=== PATIENT | male | born 1995 | race Caucasian/White ===

== ENCOUNTER 2017-10-16 20:02 | Observation (INO) | payer BC ==
[2017-10-16] MEDS ORDERED: Sodium Chloride 0.9% 1,000 ML IV ONE (20:06)
--- NOTE | 2017-10-16 20:09 | EDM.PDOC ---
ED HPI GENERAL MEDICAL PROBLEM - General Chief Complaint: Abdominal Pain Stated Complaint: PT HAS STOMACH PAINS Time Seen by Provider: 10/16/17 20:05 - History of Present Illness INITIAL COMMENTS - FREE TEXT/NARRATIVE: HISTORY AND PHYSICAL: History of present illness: Patient 22-year-old white male presents concern of left-sided abdominal pain for increase over last 24 hours patient equivocates as to the onset no fever chills nausea vomiting he denies trauma or other concern. Review of systems: As per history of present illness and below otherwise all systems reviewed and negative. Past medical history: As per history of present illness and as reviewed below otherwise noncontributory. Surgical history: As per history of present illness and as reviewed below otherwise noncontributory. Social history: No reported history of drug or alcohol abuse. Family history: As per history of present illness and as reviewed below otherwise noncontributory. Physical exam: HEENT: Atraumatic, normocephalic, pupils reactive, negative for conjunctival pallor or scleral icterus, mucous membranes moist, throat clear, neck supple, nontender, trachea midline. Lungs: Clear to auscultation, breath sounds equal bilaterally, chest nontender. Heart: S1S2, regular, negative for clicks, rubs, or JVD. Abdomen: Soft, nondistended, nontender. Negative for masses or hepatosplenomegaly. Negative for costovertebral tenderness. Pelvis: Stable nontender. Genitourinary: Deferred. Rectal: Deferred. Extremities: Atraumatic, negative for cords or calf pain. Neurovascular unremarkable. Neuro: Awake, alert, oriented. Cranial nerves II through XII unremarkable. Cerebellum unremarkable. Motor and sensory unremarkable throughout. Exam nonfocal. Diagnostics: CBC CMP UA EtOH urine drug screen CT abdomen and pelvis Therapeutics: Saline 1 L bolus Impression: #1 left-sided abdominal pain Definitive disposition and diagnosis as appropriate pending reevaluation and review of above. abdomen Pain Score (Numeric/FACES): 7 - Related Data Allergies Allergy/AdvReac Type Severity Reaction Status Date / Time No Known Allergies Allergy Verified 10/16/17 20:16 Home Meds: Home Meds . [No Known Home Meds] 10/16/17 [History] Past Medical History HEENT History: Reports: None Cardiovascular History: Reports: None Respiratory History: Reports: None Gastrointestinal History: Reports: None Genitourinary History: Reports: None Musculoskeletal History: Reports: None Neurological History: Reports: None Psychiatric History: Reports: ADHD Endocrine/Metabolic History: Reports: None Hematologic History: Reports: None Immunologic History: Reports: None Oncologic (Cancer) History: Reports: None Dermatologic History: Reports: None - Past Surgical History Head Surgeries/Procedures: Reports: None Cardiovascular Surgical History: Reports: None Social & Family History - Tobacco Use Smoking Status *Q: Current Every Day Smoker Years of Tobacco use: 6 Packs/Tins Daily: 1 - Recreational Drug Use Recreational Drug Use: Yes Drug Use in Last 12 Months: No ED ROS GENERAL - Review of Systems Review Of Systems: ROS reveals no pertinent complaints other than HPI. ED EXAM, GENERAL - Physical Exam Exam: See Below (See dictation) Course - Vital Signs Last Recorded V/S: Last Vital Signs Temp 36.6 C 10/16/17 20:02 Pulse 97 10/16/17 20:02 Resp 18 10/16/17 20:02 BP 128/69 10/16/17 20:02 Pulse Ox 99 10/16/17 20:02 - Orders/Labs/Meds Orders: Active Orders 24 hr Category Date Time Status EKG 12 Lead [EKG Documentation Completion] [RC] STAT Care 10/16/17 23:45 Active Abdomen Pelvis w Cont [CT] Stat Exams 10/16/17 20:06 Taken Labs: Laboratory Tests 10/16/17 10/16/17 10/16/17 Range/Units 20:21 20:21 20:25 WBC 9.32 (4.0-11.0) K/uL RBC 3.99 L (4.50-5.90) M/uL Hgb 12.7 L (13.0-17.0) g/dL Hct 36.2 L (38.0-50.0) % MCV 90.7 (80.0-98.0) fL MCH 31.8 (27.0-32.0) pg MCHC 35.1 (31.0-37.0) g/dL RDW Std Deviation 50.3 (28.0-62.0) fl RDW Coeff of Hannah 15 (11.0-15.0) % Plt Count 219 (150-400) K/uL MPV 8.60 (7.40-12.00) fL Add Manual Diff YES Neutrophils % (Manual) 29 L (48.0-80.0) % Band Neutrophils % 4 % Lymphocytes % (Manual) 56 H (16.0-40.0) % Monocytes % (Manual) 9 (0.0-15.0) % Eosinophils % (Manual) 1 (0.0-7.0) % Basophils % (Manual) 1 (0.0-1.5) % Nucleated RBC % 0.0 /100WBC Absolute Seg Neuts 2.7 (1.4-5.7) Band Neutrophils # 0.4 Lymphocytes # (Manual) 5.2 H (0.6-2.4) Monocytes # (Manual) 0.8 (0.0-0.8) Eosinophils # (Manual) 0.1 (0.0-0.7) Basophils # (Manual) 0.1 (0.0-0.1) Nucleated RBCs # 0 K/uL Sodium 140 (136-146) mmol/L Potassium 4.1 (3.5-5.1) mmol/L Chloride 110 (98-110) mmol/L Carbon Dioxide 21 (21-31) mmol/L BUN 12 (6.0-23.0) mg/dL Creatinine 0.8 (0.6-1.5) mg/dL Est Cr Clr Drug Dosing 126.88 mL/min Estimated GFR (MDRD) > 60.0 ml/min Glucose 110 (60-110) mg/dL Calcium 8.7 L (8.8-10.8) mg/dL Total Bilirubin 1.1 (0.1-1.5) mg/dL AST 81 H (5-40) IU/L ALT 158 H (8-54) IU/L Alkaline Phosphatase 94 (40-150) Total Protein 7.3 (6.0-8.0) g/dL Albumin 3.6 (3.5-5.0) g/dL Globulin 3.7 H (2.0-3.5) g/dL Albumin/Globulin Ratio 1.0 L (1.3-2.8) Lipase 73 (7-80) U/L Urine Color YELLOW Urine Appearance CLEAR Urine pH 7.0 (5.0-8.0) Ur Specific [place] 1.020 (1.001-1.035) Urine Protein NEGATIVE (NEGATIVE) mg/dL Urine Glucose (UA) NEGATIVE (NEGATIVE) mg/dL Urine Ketones NEGATIVE (NEGATIVE) mg/dL Urine Occult Blood NEGATIVE (NEGATIVE) Urine Nitrite NEGATIVE (NEGATIVE) Urine Bilirubin NEGATIVE (NEGATIVE) Urine Urobilinogen 1.0 (<2.0) EU/dL Ur Leukocyte Esterase NEGATIVE (NEGATIVE) Urine RBC 0-2 (0-2/HPF) Urine WBC 0-2 (0-5/HPF) Ur Epithelial Cells RARE (NONE-FEW) Urine Bacteria FEW (NEGATIVE) Urine Opiates Screen (NEGATIVE) Ur Oxycodone Screen (NEGATIVE) Urine Methadone Screen (NEGATIVE) Ur Barbiturates Screen (NEGATIVE) Ur Phencyclidine Scrn (NEGATIVE) Ur Amphetamine Screen (NEGATIVE) U Methamphetamines Scrn (NEGATIVE) U Benzodiazepines Scrn (NEGATIVE) U Cocaine Metab Screen (NEGATIVE) U Marijuana (THC) Screen (NEGATIVE) Ethyl Alcohol < 10.0 mg/dL 10/16/17 Range/Units 20:25 WBC (4.0-11.0) K/uL RBC (4.50-5.90) M/uL Hgb (13.0-17.0) g/dL Hct (38.0-50.0) % MCV (80.0-98.0) fL MCH (27.0-32.0) pg MCHC (31.0-37.0) g/dL RDW Std Deviation (28.0-62.0) fl RDW Coeff of Hannah (11.0-15.0) % Plt Count (150-400) K/uL MPV (7.40-12.00) fL Add Manual Diff Neutrophils % (Manual) (48.0-80.0) % Band Neutrophils % % Lymphocytes % (Manual) (16.0-40.0) % Monocytes % (Manual) (0.0-15.0) % Eosinophils % (Manual) (0.0-7.0) % Basophils % (Manual) (0.0-1.5) % Nucleated RBC % /100WBC Absolute Seg Neuts (1.4-5.7) Band Neutrophils # Lymphocytes # (Manual) (0.6-2.4) Monocytes # (Manual) (0.0-0.8) Eosinophils # (Manual) (0.0-0.7) Basophils # (Manual) (0.0-0.1) Nucleated RBCs # K/uL Sodium (136-146) mmol/L Potassium (3.5-5.1) mmol/L Chloride (98-110) mmol/L Carbon Dioxide (21-31) mmol/L BUN (6.0-23.0) mg/dL Creatinine (0.6-1.5) mg/dL Est Cr Clr Drug Dosing mL/min Estimated GFR (MDRD) ml/min Glucose (60-110) mg/dL Calcium (8.8-10.8) mg/dL Total Bilirubin (0.1-1.5) mg/dL AST (5-40) IU/L ALT (8-54) IU/L Alkaline Phosphatase (40-150) Total Protein (6.0-8.0) g/dL Albumin (3.5-5.0) g/dL Globulin (2.0-3.5) g/dL Albumin/Globulin Ratio (1.3-2.8) Lipase (7-80) U/L Urine Color Urine Appearance Urine pH (5.0-8.0) Ur Specific [place] (1.001-1.035) Urine Protein (NEGATIVE) mg/dL Urine Glucose (UA) (NEGATIVE) mg/dL Urine Ketones (NEGATIVE) mg/dL Urine Occult Blood (NEGATIVE) Urine Nitrite (NEGATIVE) Urine Bilirubin (NEGATIVE) Urine Urobilinogen (<2.0) EU/dL Ur Leukocyte Esterase (NEGATIVE) Urine RBC (0-2/HPF) Urine WBC (0-5/HPF) Ur Epithelial Cells (NONE-FEW) Urine Bacteria (NEGATIVE) Urine Opiates Screen NEGATIVE (NEGATIVE) Ur Oxycodone Screen NEGATIVE (NEGATIVE) Urine Methadone Screen NEGATIVE (NEGATIVE) Ur Barbiturates Screen NEGATIVE (NEGATIVE) Ur Phencyclidine Scrn NEGATIVE (NEGATIVE) Ur Amphetamine Screen NEGATIVE (NEGATIVE) U Methamphetamines Scrn NEGATIVE (NEGATIVE) U Benzodiazepines Scrn NEGATIVE (NEGATIVE) U Cocaine Metab Screen NEGATIVE (NEGATIVE) U Marijuana (THC) Screen POSITIVE (NEGATIVE) Ethyl Alcohol mg/dL Meds: Medications Discontinued Medications Generic Name Dose Route Start Last Admin Trade Name Freq PRN Reason Stop Dose Admin Sodium Chloride 1,000 mls @ 999 mls/hr 10/16/17 20:06 10/16/17 20:43 Normal Saline IV 10/16/17 21:06 999 mls/hr STAT ONE Administration Iopamidol 100 ml 10/16/17 22:37 10/16/17 22:38 Isovue Multipack-370 (76%) IVPUSH 10/16/17 22:38 100 ml ONETIME STA Administration Departure - Departure Time of Disposition: 23:46 Disposition: Refer to Observation Condition: Good Clinical Impression: Abdominal pain, Splenic infarction - Discharge Information Forms: ED Department Discharge - My Orders Last 24 Hours: My Active Orders 10/16/17 20:06 Abdomen Pelvis w Cont [CT] Stat 10/16/17 23:45 EKG 12 Lead [EKG Documentation Completion] [RC] STAT - Assessment/Plan Last 24 Hours: My Active Orders 10/16/17 20:06 Abdomen Pelvis w Cont [CT] Stat 10/16/17 23:45 EKG 12 Lead [EKG Documentation Completion] [RC] STAT
[2017-10-16 20:52] LABS: CHLORIDE,CL 110 mmol/L (98-110); SODIUM,NA 140 mmol/L (136-146)
[2017-10-16] MEDS ORDERED: Iopamidol 755 MG/ML 500 ML Multipack Bottle IVPUSH STA (22:37)
[2017-10-17] MEDS ORDERED: Morphine 2 MG/ML Syringe IVPUSH PRN (00:34)
[2017-10-17] MEDS: Nicotine 21 MG/24 Hr Patch TRDERM SCH ×3 (01:07→18:12)
[2017-10-17 06:12] LABS: CHLORIDE,CL 111 mmol/L (98-110); SODIUM,NA 141 mmol/L (136-146)
[2017-10-17] MEDS: Sodium Chloride 0.45% 1,000 ML IV SCH ×2 (09:50→19:58)
[2017-10-17] MEDS ORDERED: Acetaminophen/oxyCODONE 325-5 MG Tab PO PRN (11:35)
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
--- NOTE | 2017-10-17 14:07 | CT ---
EXAM DATE: 10/16/17 PATIENT'S AGE: 22 Patient: LIANA SYED Facility: [place], [place] Site . Site : 1995 Study: CT Abdomen/Pelvis [id number]/23/2017 10:33:30 PM Ordering Physician: Mayito Hearn Final Report: INDICATION: Left upper quadrant pain for 1 week, no history of trauma TECHNIQUE: CT abdomen and pelvis acquired with 100 cc Isovue 370 IV contrast. COMPARISON: November 21, 2015 FINDINGS: Lower chest: Unremarkable. Liver: Unremarkable. Spleen: There is a well demarcated, wedge-shaped, peripheral hypodensity within the spleen measuring approximately 3.5 x 2.6 x 3.2 cm. The spleen measures 14.5 cm in length. Pancreas: Unremarkable. Gallbladder and bile ducts: Unremarkable. Adrenal glands: Unremarkable. Kidneys: Unremarkable. GI tract: Unremarkable. Vascular structures: Unremarkable. Lymph nodes: Unremarkable. Miscellaneous: Unremarkable. No free air or significant free fluid. Pelvic Organs: Trace free fluid in the pelvis. Bones: Unremarkable for age. IMPRESSION: Acute/subacute segmental infarction of the spleen. The amount of infarcted tissue is less than 10 percent of the splenic parenchyma. There is also splenomegaly. Please note that all CT scans at this facility use dose modulation, iterative reconstruction, and/or weight-based dosing when appropriate to reduce radiation dose to as low as reasonably achievable. Dictated by Mojgan Richardson MD @ Oct 16 2017 11:27PM (Electronic Signature) Report Signed by Proxy. BORA
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
[2017-10-18] MEDS: Sodium Chloride 0.45% 1,000 ML IV SCH (05:16)
[2017-10-18 09:26] VITALS: BP 107/57
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
== END 2017-10-18 12:25 | disposition home or self-care (01) ==
LOC: MW.ED 20:02 → MW.MS 23:47
PROVIDERS: ADMIT Internal Medicine; ATTEND Internal Medicine
DX: D73.5 Infarction of spleen (principal); F17.220 Nicotine dependence, chewing tobacco, uncomplicated; F12.90 Cannabis use, unspecified, uncomplicated; F90.9 Attention-deficit hyperactivity disorder, unspecified type
CPT/HCPCS: 36415; 74177; 80053; 80305; 81001; 81241; 83690; 85025; 85027; 85300; 85302; 85303; 85610; 85613; 85670; 85730; 86146; 86147; 96360; 99285; A9270; G0480; J7030; J7040; Q9967; 85598; 96361; 99283; G0378

== ENCOUNTER 2018-01-23 03:45 | Emergency (ER) | payer OTHER, BC ==
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
[2018-01-23 05:26] VITALS: BP 120/58
--- NOTE | 2018-01-23 15:13 | CR ---
EXAM DATE: 01/23/18 PATIENT'S AGE: 22 Patient: LIANA SYED Facility: [place], [place] Site . Site : 1995 Study: XRay Extremity Right [id number]/2/2018 4:17:28 AM Ordering Physician: Doctor Ambrosio Final Report: Indication: Injury Technique: Three views of the right hand Comparison: None available Findings: Bones: An apparent tiny cortical protuberance off of the proximal aspect of the 3rd proximal phalanx on the oblique view is nonspecific and appears nonacute. Otherwise no displaced fracture or dislocation. Joint spaces: Unremarkable. Soft tissues: Unremarkable. Impression: No displaced fracture or dislocation. An apparent tiny cortical protuberance off of the base of the 3rd proximal phalanx appears nonacute. Correlate for focal tenderness. Dictated by Dominick Henriquez MD @ 01/23/2018 4:23:43 AM Dictated by: Dominick Henriquez MD @ 01/23/2018 04:23:51 (Electronic Signature) Report Signed by Proxy. BORA
== END 2018-01-23 05:26 | disposition home or self-care (01) ==
LOC: MW.ED 03:45
DX: S60.221A Contusion of right hand, initial encounter (principal); F17.210 Nicotine dependence, cigarettes, uncomplicated; W23.0XXA Caught, crushed, jammed, or pinched between moving objects, initial encounter; Y92.89 Other specified places as the place of occurrence of the external cause; Y99.0 Civilian activity done for income or pay
CPT/HCPCS: 29125; 73130-26-RT; 73130-RT; 99283

== ENCOUNTER 2018-02-08 17:28 | Emergency (ER) | payer OTHER, BC ==
[2018-02-08] MEDS ORDERED: Lidocaine 1% 10 ML MDV INJECT ONE (17:39)
--- NOTE | 2018-02-08 17:44 | EDM.PDOC ---
ED HPI GENERAL MEDICAL PROBLEM - General Chief Complaint: Head Injury Stated Complaint: HEAD INJURY LT SIDE Time Seen by Provider: 02/08/18 17:32 - History of Present Illness INITIAL COMMENTS - FREE TEXT/NARRATIVE: HISTORY AND PHYSICAL: History of present illness: Patient's 22-year-old male presents with concern of head injury with scalp laceration this occurred when he was hit by a falling pipe he denies loss of consciousness he is some localized pain and recent laceration which is in his left occipital scalp with no nausea no vomiting no numbness weakness visual disturbance or other neurological signs or symptoms Review of systems: As per history of present illness and below otherwise all systems reviewed and negative. Past medical history: As per history of present illness and as reviewed below otherwise noncontributory. Surgical history: As per history of present illness and as reviewed below otherwise noncontributory. Social history: No reported history of drug or alcohol abuse. Family history: As per history of present illness and as reviewed below otherwise noncontributory. Physical exam: HEENT: Patient has approximately a 4 cm moderate depth laceration is left occipital scalp there is no step-off no depression hemostasis, normocephalic, pupils reactive, negative for conjunctival pallor or scleral icterus, mucous membranes moist, throat clear, neck supple, nontender, trachea midline. Lungs: Clear to auscultation, breath sounds equal bilaterally, chest nontender. Heart: S1S2, regular, negative for clicks, rubs, or JVD. Abdomen: Soft, nondistended, nontender. Negative for masses or hepatosplenomegaly. Negative for costovertebral tenderness. Pelvis: Stable nontender. Genitourinary: Deferred. Rectal: Deferred. Extremities: Atraumatic, negative for cords or calf pain. Neurovascular unremarkable. Neuro: Awake, alert, oriented. Cranial nerves II through XII unremarkable. Cerebellum unremarkable. Motor and sensory unremarkable throughout. Exam nonfocal. Diagnostics: None Therapeutics: Wound was irrigated with cold past month 0.9 normal saline and anesthetized 1% lidocaine without epinephrine and closed with stainless steel bear bacitracin was applied Impression: #1 head injury with scalp laceration Definitive disposition and diagnosis as appropriate pending reevaluation and review of above. - Related Data Allergies Allergy/AdvReac Type Severity Reaction Status Date / Time No Known Allergies Allergy Verified 01/23/18 04:00 Home Meds: Home Meds . [No Known Home Meds] 10/16/17 [History] Past Medical History - Past Health History Medical/Surgical History: Denies Medical/Surgical History HEENT History: Reports: None Cardiovascular History: Reports: None Respiratory History: Reports: None Gastrointestinal History: Reports: None Genitourinary History: Reports: None Musculoskeletal History: Reports: None Neurological History: Reports: None Psychiatric History: Reports: ADHD Endocrine/Metabolic History: Reports: None Hematologic History: Reports: None Immunologic History: Reports: None Oncologic (Cancer) History: Reports: None Dermatologic History: Reports: None - Infectious Disease History Infectious Disease History: Reports: None - Past Surgical History Head Surgeries/Procedures: Reports: None Cardiovascular Surgical History: Reports: None Social & Family History - Family History Family Medical History: Noncontributory - Tobacco Use Smoking Status *Q: Current Every Day Smoker Years of Tobacco use: 12 Packs/Tins Daily: 2 Used Tobacco, but Quit: No Second Hand Smoke Exposure: Yes - Caffeine Use Caffeine Use: Reports: Coffee, Energy Drinks, Soda - Alcohol Use Days Per Week of Alcohol Use: 2 Number of Drinks Per Day: 1 Total Drinks Per Week: 2 - Recreational Drug Use Recreational Drug Use: Yes Drug Use in Last 12 Months: Yes Recreational Drug Type: Reports: Marijuana/Hashish Other Recreational Drug Type: Medical Marijuana Recreational Drug Use Frequency: Daily ED ROS GENERAL - Review of Systems Review Of Systems: ROS reveals no pertinent complaints other than HPI. ED EXAM, HEAD INJURY - Physical Exam Exam: See Below (See dictation) Course - Orders/Labs/Meds Orders: Active Orders 24 hr Category Date Time Status Lidocaine 1% [Xylocaine 1%] Med 02/08/18 17:39 Once 10 ml INJECT ONETIME ONE Medication Orders Lidocaine HCl (Xylocaine 1%) 10 ml INJECT ONETIME ONE Stop: 02/08/18 17:40 Meds: Medications Generic Name Dose Route Start Last Admin Trade Name Freq PRN Reason Stop Dose Admin Lidocaine HCl 10 ml 02/08/18 17:39 Xylocaine 1% INJECT 02/08/18 17:40 ONETIME ONE Departure - Departure Time of Disposition: 17:43 Disposition: Home, Self-Care 01 Condition: Good Clinical Impression: Head injury, Scalp laceration - Discharge Information Referrals: PCP,None [Primary Care Provider] - Additional Instructions: The following information is given to patients seen in the emergency department who are being discharged to home. This information is to outline your options for follow-up care. We provide all patients seen in our emergency department with a follow-up referral. The need for follow-up, as well as the timing and circumstances, are variable depending upon the specifics of your emergency department visit. If you don't have a primary care physician on staff, we will provide you with a referral. We always advise you to contact your personal physician following an emergency department visit to inform them of the circumstance of the visit and for follow-up with them and/or the need for any referrals to a consulting specialist. The emergency department will also refer you to a specialist when appropriate. This referral assures that you have the opportunity for followup care with a specialist. All of these measure are taken in an effort to provide you with optimal care, which includes your followup. Under all circumstances we always encourage you to contact your private physician who remains a resource for coordinating your care. When calling for followup care, please make the office aware that this follow-up is from your recent emergency room visit. If for any reason you are refused follow-up, please contact the [facility] emergency department at and asked to speak to the emergency department charge nurse. Follow-up primary medical doctor/occupational health as discussed wound check 48 hours staple removal 10-14 days return as needed as discussed - My Orders Last 24 Hours: My Active Orders 02/08/18 17:39 Lidocaine 1% [Xylocaine 1%] 10 ml INJECT ONETIME ONE - Assessment/Plan Last 24 Hours: My Active Orders 02/08/18 17:39 Lidocaine 1% [Xylocaine 1%] 10 ml INJECT ONETIME ONE
[2018-02-08 17:49] VITALS: BP 130/90
[2018-02-08] MEDS: Lidocaine 1% 20 ML MDV ONE ×2 (18:10→18:22)
[2018-02-08] MEDS ORDERED: Bacitracin Oint 1 GM U/D Packet TOP ONE (18:16)
== END 2018-02-08 18:40 | disposition home or self-care (01) ==
LOC: MW.ED 17:28
DX: S01.01XA Laceration without foreign body of scalp, initial encounter (principal); S09.90XA Unspecified injury of head, initial encounter; F17.210 Nicotine dependence, cigarettes, uncomplicated; W20.8XXA Other cause of strike by thrown, projected or falling object, initial encounter
CPT/HCPCS: 12002; 99282; 99283

== ENCOUNTER 2018-02-27 09:59 | Emergency (ER) | payer OTHER, BC ==
[2018-02-27 10:15] VITALS: BP 133/69
== END 2018-02-27 10:17 | disposition home or self-care (01) ==
LOC: MW.ED 09:59
DX: Z53.21 Procedure and treatment not carried out due to patient leaving prior to being seen by health care provider (principal)

== ENCOUNTER 2019-01-03 12:24 | Emergency (ER) | payer OTHER, BC ==
[2019-01-03 12:39] VITALS: BP 114/70
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
== END 2019-01-03 13:11 | disposition home or self-care (01) ==
LOC: MW.ED 12:24
DX: M54.5 Low back pain (principal); F17.210 Nicotine dependence, cigarettes, uncomplicated
CPT/HCPCS: 99283

== ENCOUNTER 2019-04-07 21:51 | Emergency (ER) | payer OTHER ==
[2019-04-07] MEDS ORDERED: Tetracaine HCl/PF 0.5% 4 ML Bottle EYERT ONE (21:54)
[2019-04-07 22:03] VITALS: BP 120/75
--- NOTE | 2019-04-07 22:08 | EDM.PDOC ---
ED HPI GENERAL MEDICAL PROBLEM - General Chief Complaint: Eye Problems Stated Complaint: ROCK IN RT EYE Time Seen by Provider: 04/07/19 22:00 - History of Present Illness INITIAL COMMENTS - FREE TEXT/NARRATIVE: HISTORY AND PHYSICAL: History of present illness: Patient 23-year-old male presents with concern of possible foreign body to his right eye he states a small rock or debris was in his right eye at work today he states he immediately went washed his eye at the eye station presents now for evaluation. Review of systems: As per history of present illness and below otherwise all systems reviewed and negative. Past medical history: As per history of present illness and as reviewed below otherwise noncontributory. Surgical history: As per history of present illness and as reviewed below otherwise noncontributory. Social history: No reported history of drug or alcohol abuse. Family history: As per history of present illness and as reviewed below otherwise noncontributory. Physical exam: HEENT: Atraumatic, normocephalic, pupils reactive, negative for conjunctival pallor or scleral icterus, mucous membranes moist, throat clear, neck supple, nontender, trachea midline. Anterior chambers clear there is no retained foreign body corneal staining was negative for evidence of corneal abrasion in the lid eversion was negative for foreign body Lungs: Clear to auscultation, breath sounds equal bilaterally, chest nontender. Heart: S1S2, regular, negative for clicks, rubs, or JVD. Abdomen: Soft, nondistended, nontender. Negative for masses or hepatosplenomegaly. Negative for costovertebral tenderness. Pelvis: Stable nontender. Genitourinary: Deferred. Rectal: Deferred. Extremities: Atraumatic, negative for cords or calf pain. Neurovascular unremarkable. Neuro: Awake, alert, oriented. Cranial nerves II through XII unremarkable. Cerebellum unremarkable. Motor and sensory unremarkable throughout. Exam nonfocal. Diagnostics: Corneal staining Therapeutics: Tetracaine ophthalmic drops irrigation Impression: #1 history of right eye foreign body #2 medical screening exam Definitive disposition and diagnosis as appropriate pending reevaluation and review of above. right eye Pain Score (Numeric/FACES): 5 - Related Data Allergies Allergy/AdvReac Type Severity Reaction Status Date / Time No Known Allergies Allergy Verified 04/07/19 22:00 Home Meds: Home Meds . [No Known Home Meds] 04/07/19 [History] Past Medical History - Past Health History Medical/Surgical History: Denies Medical/Surgical History HEENT History: Reports: None Cardiovascular History: Reports: None Respiratory History: Reports: None Gastrointestinal History: Reports: None Genitourinary History: Reports: None, Other (See Below) Other Genitourinary History: hx of spleen injury Musculoskeletal History: Reports: None Neurological History: Reports: None Psychiatric History: Reports: ADHD Endocrine/Metabolic History: Reports: None Hematologic History: Reports: None Immunologic History: Reports: None Oncologic (Cancer) History: Reports: None Dermatologic History: Reports: None - Infectious Disease History Infectious Disease History: Reports: Chicken Pox - Past Surgical History Head Surgeries/Procedures: Reports: None Cardiovascular Surgical History: Reports: None Social & Family History - Family History Family Medical History: Noncontributory - Caffeine Use Caffeine Use: Reports: Coffee, Energy Drinks, Soda ED ROS GENERAL - Review of Systems Review Of Systems: ROS reveals no pertinent complaints other than HPI. ED EXAM GENERAL W FULL EYE - Physical Exam Exam: See Below (See dictation) Course - Vital Signs Last Recorded V/S: Last Vital Signs Temp 36.6 C 04/07/19 21:57 Pulse 69 04/07/19 21:57 Resp 17 04/07/19 21:57 BP 120/75 04/07/19 21:57 Pulse Ox 98 04/07/19 21:57 - Orders/Labs/Meds Meds: Medications Discontinued Medications Generic Name Dose Route Start Last Admin Trade Name Freq PRN Reason Stop Dose Admin Tetracaine HCl 1 ml 04/07/19 21:54 04/07/19 22:03 Tetracaine 0.5% Steri-Unit Vanessa EYERT 04/07/19 21:55 1 dose ASDIRECTED ONE Administration Departure - Departure Time of Disposition: 22:07 Disposition: Home, Self-Care 01 Condition: Good Clinical Impression: Encounter for medical screening examination, History of eye trauma - Discharge Information Referrals: PCP,None [Primary Care Provider] - Additional Instructions: The following information is given to patients seen in the emergency department who are being discharged to home. This information is to outline your options for follow-up care. We provide all patients seen in our emergency department with a follow-up referral. The need for follow-up, as well as the timing and circumstances, are variable depending upon the specifics of your emergency department visit. If you don't have a primary care physician on staff, we will provide you with a referral. We always advise you to contact your personal physician following an emergency department visit to inform them of the circumstance of the visit and for follow-up with them and/or the need for any referrals to a consulting specialist. The emergency department will also refer you to a specialist when appropriate. This referral assures that you have the opportunity for followup care with a specialist. All of these measure are taken in an effort to provide you with optimal care, which includes your followup. Under all circumstances we always encourage you to contact your private physician who remains a resource for coordinating your care. When calling for followup care, please make the office aware that this follow-up is from your recent emergency room visit. If for any reason you are refused follow-up, please contact the [facility] emergency department at and asked to speak to the emergency department charge nurse. [facility] [address] [place] [id number] Follow-up employee health and ophthalmology clinic above as needed as discussed return as needed as discussed
== END 2019-04-07 22:18 | disposition home or self-care (01) ==
LOC: MW.ED 21:51
DX: Z13.9 Encounter for screening, unspecified (principal)
CPT/HCPCS: 99283

== ENCOUNTER 2019-04-08 19:25 | Emergency (ER) | payer BC, OTHER ==
[2019-04-08] MEDS ORDERED: Albuterol/Ipratropium 3.0-0.5 MG/3 ML Neb Soln NEB ONE (19:26)
--- NOTE | 2019-04-08 19:28 | EDM.PDOC ---
ED HPI GENERAL MEDICAL PROBLEM - General Chief Complaint: Respiratory Problem Stated Complaint: HARD TIME BREATHING Time Seen by Provider: 04/08/19 19:28 Source of Information: Reports: Patient - History of Present Illness INITIAL COMMENTS - FREE TEXT/NARRATIVE: HISTORY AND PHYSICAL: History of present illness: [Patient presents with smoking history one pack per day and cough for 1 week he describes some intermittent wheezing but has no current wheeze breath sounds are clear but somewhat diminished at the bases on arrival ice in no distress alert interactive able to speak in full sentences no retractions or pursed lip breathing No fever nausea vomiting chills sweats No apparent distress 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 Past medical history: As per history of present illness and as reviewed below otherwise noncontributory. Surgical history: As per history of present illness and as reviewed below otherwise noncontributory. Social history: No reported history of drug or alcohol abuse. Family history: As per history of present illness and as reviewed below otherwise noncontributory. Physical exam: HEENT: Atraumatic, normocephalic, pupils reactive, negative for conjunctival pallor or scleral icterus, mucous membranes moist, throat clear, neck supple, nontender, trachea midline. Lungs: Clear to auscultation, breath sounds equal bilaterally, chest nontender. somewhat diminished at the bases Heart: S1S2, regular, negative for clicks, rubs, or JVD. Abdomen: Soft, nondistended, nontender. Negative for masses or hepatosplenomegaly. Negative for costovertebral tenderness. Pelvis: Stable nontender. Genitourinary: Deferred. Rectal: Deferred. Extremities: Atraumatic, negative for cords or calf pain. Neurovascular unremarkable. Neuro: Awake, alert, oriented. Cranial nerves II through XII unremarkable. Cerebellum unremarkable. Motor and sensory unremarkable throughout. Exam nonfocal. Diagnostics: [Chest 1 view ] Therapeutics: [ DuoNeb Z-Mikael Prednisone HFA ] Impression: [ acute bronchitis ] Definitive disposition and diagnosis as appropriate pending reevaluation and review of above. - Related Data Allergies Allergy/AdvReac Type Severity Reaction Status Date / Time No Known Allergies Allergy Verified 04/08/19 19:41 Home Meds: Home Meds . [No Known Home Meds] 04/07/19 [History] Past Medical History - Past Health History Medical/Surgical History: Denies Medical/Surgical History HEENT History: Reports: None Cardiovascular History: Reports: None Respiratory History: Reports: None Gastrointestinal History: Reports: None Genitourinary History: Reports: None, Other (See Below) Other Genitourinary History: hx of spleen injury Musculoskeletal History: Reports: None Neurological History: Reports: None Psychiatric History: Reports: ADHD Endocrine/Metabolic History: Reports: None Hematologic History: Reports: None Immunologic History: Reports: None Oncologic (Cancer) History: Reports: None Dermatologic History: Reports: None - Infectious Disease History Infectious Disease History: Reports: Chicken Pox - Past Surgical History Head Surgeries/Procedures: Reports: None Cardiovascular Surgical History: Reports: None Social & Family History - Family History Family Medical History: Noncontributory - Caffeine Use Caffeine Use: Reports: Coffee, Energy Drinks, Soda ED ROS GENERAL - Review of Systems Review Of Systems: See Below ED EXAM, GENERAL - Physical Exam Exam: See Below Course - Vital Signs Last Recorded V/S: Last Vital Signs Temp 98.0 F 04/08/19 19:30 Pulse 73 04/08/19 19:30 Resp 22 H 04/08/19 19:30 BP 124/67 04/08/19 19:30 Pulse Ox 98 04/08/19 19:30 - Orders/Labs/Meds Orders: Active Orders 24 hr Category Date Time Status RT Aerosol Therapy [RC] ASDIRECTED Care 04/08/19 19:26 Active Chest 1V Frontal [CR] Stat Exams 04/08/19 19:28 Taken Meds: Medications Discontinued Medications Generic Name Dose Route Start Last Admin Trade Name Corina PRN Reason Stop Dose Admin Albuterol/Ipratropium 3 ml 04/08/19 19:26 04/08/19 19:32 Duoneb 3.0-0.5 Mg/3 Ml NEB 04/08/19 19:27 3 ml ONETIME ONE Administration Departure - Departure Time of Disposition: 20:06 Disposition: Home, Self-Care 01 Condition: Good Clinical Impression: Acute bronchitis - Discharge Information Referrals: PCP,None [Primary Care Provider] - Forms: ED Department Discharge Additional Instructions: Medication as prescribed Return if symptoms persist or worsen Follow-up with primary care in 2 weeks sooner as needed [facility] - Primary [address] [address] The following information is given to patients seen in the emergency department who are being discharged to home. This information is to outline your options for follow-up care. We provide all patients seen in our emergency department with a follow-up referral. The need for follow-up, as well as the timing and circumstances, are variable depending upon the specifics of your emergency department visit. If you don't have a primary care physician on staff, we will provide you with a referral. We always advise you to contact your personal physician following an emergency department visit to inform them of the circumstance of the visit and for follow-up with them and/or the need for any referrals to a consulting specialist. The emergency department will also refer you to a specialist when appropriate. This referral assures that you have the opportunity for follow-up care with a specialist. All of these measure are taken in an effort to provide you with optimal care, which includes your follow-up. Under all circumstances we always encourage you to contact your private physician who remains a resource for coordinating your care. When calling for follow-up care, please make the office aware that this follow-up is from your recent emergency room visit. If for any reason you are refused follow-up, please contact the [facility] emergency department at and asked to speak to the emergency department charge nurse. - My Orders Last 24 Hours: My Active Orders 04/08/19 19:26 RT Aerosol Therapy [RC] ASDIRECTED 04/08/19 19:28 Chest 1V Frontal [CR] Stat - Assessment/Plan Last 24 Hours: My Active Orders 04/08/19 19:26 RT Aerosol Therapy [RC] ASDIRECTED 04/08/19 19:28 Chest 1V Frontal [CR] Stat
--- NOTE | 2019-04-08 20:21 | CR ---
INDICATION: Chest pain and shortness of breath TECHNIQUE: Chest 1 views COMPARISON: October 14, 2018 FINDINGS: Cardiovascular and mediastinum: Heart size and vasculature are normal in caliber and appearance. Lungs and pleural spaces: Lungs are clear. No sign of infiltrate or mass. No sign of pleural effusion. No pneumothorax. Bones and soft tissues: No significant findings. IMPRESSION: No acute findings and no significant changes from the prior exam. Dictated by Too Anand MD @ Apr 08 2019 8:17PM Signed by Dr. Too Anand @ Apr 08 2019 8:20PM
[2019-04-08 20:28] VITALS: BP 106/53
== END 2019-04-08 20:38 | disposition home or self-care (01) ==
LOC: MW.ED 19:25
DX: J20.9 Acute bronchitis, unspecified (principal); Z87.891 Personal history of nicotine dependence
CPT/HCPCS: 71045; 71045-26; 94640; 99283-25; J7620-GY

== ENCOUNTER 2019-05-19 17:23 | Emergency (ER) | payer BC ==
--- NOTE | 2019-05-19 17:48 | EDM.PDOC ---
ED HPI GENERAL MEDICAL PROBLEM - General Chief Complaint: Skin Complaint Stated Complaint: INJURED HEAD Time Seen by Provider: 05/19/19 17:39 - History of Present Illness INITIAL COMMENTS - FREE TEXT/NARRATIVE: HISTORY AND PHYSICAL: History of present illness: Patient is a 23-year-old white male presents with a wound to his scalp concern of updating his tetanus he denies any other trauma or concern. Review of systems: As per history of present illness and below otherwise all systems reviewed and negative. Past medical history: As per history of present illness and as reviewed below otherwise noncontributory. Surgical history: As per history of present illness and as reviewed below otherwise noncontributory. Social history: No reported history of drug or alcohol abuse. Family history: As per history of present illness and as reviewed below otherwise noncontributory. Physical exam: HEENT: Patient has a superficial abrasion is frontal scalp good hemostasis no step-off no depression, normocephalic, pupils reactive, negative for conjunctival pallor or scleral icterus, mucous membranes moist, throat clear, neck supple, nontender, trachea midline. Lungs: Clear to auscultation, breath sounds equal bilaterally, chest nontender. Heart: S1S2, regular, negative for clicks, rubs, or JVD. Abdomen: Soft, nondistended, nontender. Negative for masses or hepatosplenomegaly. Negative for costovertebral tenderness. Pelvis: Stable nontender. Genitourinary: Deferred. Rectal: Deferred. Extremities: Atraumatic, negative for cords or calf pain. Neurovascular unremarkable. Neuro: Awake, alert, oriented. Cranial nerves II through XII unremarkable. Cerebellum unremarkable. Motor and sensory unremarkable throughout. Exam nonfocal. Diagnostics: None Therapeutics: Update tetanus Impression: #1 medical screening exam #2 minor abrasion Definitive disposition and diagnosis as appropriate pending reevaluation and review of above. - Related Data Allergies Allergy/AdvReac Type Severity Reaction Status Date / Time No Known Allergies Allergy Verified 05/19/19 17:38 Home Meds: Home Meds . [No Known Home Meds] 04/07/19 [History] Past Medical History - Past Health History Medical/Surgical History: Denies Medical/Surgical History HEENT History: Reports: None Cardiovascular History: Reports: None Respiratory History: Reports: None Gastrointestinal History: Reports: None Genitourinary History: Reports: None, Other (See Below) Other Genitourinary History: hx of spleen injury Musculoskeletal History: Reports: None Neurological History: Reports: None Psychiatric History: Reports: ADHD Endocrine/Metabolic History: Reports: None Hematologic History: Reports: None Immunologic History: Reports: None Oncologic (Cancer) History: Reports: None Dermatologic History: Reports: None - Infectious Disease History Infectious Disease History: Reports: Chicken Pox - Past Surgical History Head Surgeries/Procedures: Reports: None Cardiovascular Surgical History: Reports: None Social & Family History - Family History Family Medical History: Noncontributory - Caffeine Use Caffeine Use: Reports: Coffee, Energy Drinks, Soda ED ROS GENERAL - Review of Systems Review Of Systems: ROS reveals no pertinent complaints other than HPI. ED EXAM, SKIN/RASH Exam: See Below (Dictation) Departure - Departure Time of Disposition: 17:48 Disposition: Home, Self-Care 01 Condition: Good Clinical Impression: Abrasion, Encounter for medical screening examination - Discharge Information Referrals: PCP,None [Primary Care Provider] - Additional Instructions: The following information is given to patients seen in the emergency department who are being discharged to home. This information is to outline your options for follow-up care. We provide all patients seen in our emergency department with a follow-up referral. The need for follow-up, as well as the timing and circumstances, are variable depending upon the specifics of your emergency department visit. If you don't have a primary care physician on staff, we will provide you with a referral. We always advise you to contact your personal physician following an emergency department visit to inform them of the circumstance of the visit and for follow-up with them and/or the need for any referrals to a consulting specialist. The emergency department will also refer you to a specialist when appropriate. This referral assures that you have the opportunity for followup care with a specialist. All of these measure are taken in an effort to provide you with optimal care, which includes your followup. Under all circumstances we always encourage you to contact your private physician who remains a resource for coordinating your care. When calling for followup care, please make the office aware that this follow-up is from your recent emergency room visit. If for any reason you are refused follow-up, please contact the [facility] emergency department at and asked to speak to the emergency department charge nurse. Follow-up primary medical doctor as needed as discussed return as needed as discussed
[2019-05-19] MEDS ORDERED: Diphtheria,Pertussis(Acell),Tetanus Vaccine 0.5 ML Syringe IM ONE (17:51)
[2019-05-19 18:57] VITALS: BP 138/75
== END 2019-05-19 18:17 | disposition home or self-care (01) ==
LOC: MW.ED 17:23
DX: S00.01XA Abrasion of scalp, initial encounter (principal); X58.XXXA Exposure to other specified factors, initial encounter
CPT/HCPCS: 90471; 90715; 99283

== ENCOUNTER 2019-06-29 20:43 | Emergency (ER) | payer SELFPAY ==
[2019-06-29] MEDS ORDERED: Benzocaine 20% Topical Spray UD MUCMEM ONE (21:01)
[2019-06-29] MEDS ORDERED: Ketorolac 60 MG/2 ML SDV IM ONE (21:01)
[2019-06-29] MEDS ORDERED: Lidocaine 2% Viscous Solution 15 ML Cup PO ONE (21:01)
--- NOTE | 2019-06-29 21:06 | EDM.PDOC ---
ED HPI GENERAL MEDICAL PROBLEM - General Chief Complaint: ENT Problem Stated Complaint: INFECTION IN TOOTH AND LT EAR Time Seen by Provider: 06/29/19 20:52 Source of Information: Reports: Patient History Limitations: Reports: No Limitations - History of Present Illness INITIAL COMMENTS - FREE TEXT/NARRATIVE: HISTORY AND PHYSICAL: History of present illness: Presents reporting dental pain. Patient states that he has several teeth that are rotted out. Now he has left lower quadrant mouth/jaw pain. He stopped by a dental office they told him he needed to be on antibiotics before he could have dental work done but they declined to see him. No fever or constitutional symptoms. Review of systems: As per history of present illness and below otherwise all systems reviewed and negative. Past medical history: As per history of present illness and as reviewed below otherwise noncontributory. Surgical history: As per history of present illness and as reviewed below otherwise noncontributory. Social history: No reported history of drug or alcohol abuse. Family history: As per history of present illness and as reviewed below otherwise noncontributory. Physical exam: HEENT: Atraumatic, normocephalic, pupils reactive, negative for conjunctival pallor or scleral icterus, mucous membranes moist, throat clear, neck supple, nontender, trachea midline. Lungs: Clear to auscultation, breath sounds equal bilaterally, chest nontender. Heart: S1S2, regular, negative for clicks, rubs, or JVD. Abdomen: Soft, nondistended, nontender. Negative for masses or hepatosplenomegaly. Negative for costovertebral tenderness. Pelvis: Stable nontender. Genitourinary: Deferred. Rectal: Deferred. Extremities: Atraumatic, negative for cords or calf pain. Neurovascular unremarkable. Neuro: Awake, alert, oriented. Cranial nerves II through XII unremarkable. Cerebellum unremarkable. Motor and sensory unremarkable throughout. Exam nonfocal. Diagnostics: [] Therapeutics: [] Impression: [] Plan: [] Definitive disposition and diagnosis as appropriate pending reevaluation and review of above. dental area Pain Score (Numeric/FACES): 8 - Related Data Allergies Allergy/AdvReac Type Severity Reaction Status Date / Time No Known Allergies Allergy Verified 06/29/19 20:49 Home Meds: Home Meds Clindamycin HCl 1 cap PO TID #30 capsule 06/29/19 [Rx] Past Medical History - Past Health History Medical/Surgical History: Denies Medical/Surgical History HEENT History: Reports: None Cardiovascular History: Reports: None Respiratory History: Reports: None Gastrointestinal History: Reports: None Genitourinary History: Reports: None, Other (See Below) Other Genitourinary History: hx of spleen injury Musculoskeletal History: Reports: None Neurological History: Reports: None Psychiatric History: Reports: ADHD Endocrine/Metabolic History: Reports: None Hematologic History: Reports: None Immunologic History: Reports: None Oncologic (Cancer) History: Reports: None Dermatologic History: Reports: None - Infectious Disease History Infectious Disease History: Reports: None - Past Surgical History Head Surgeries/Procedures: Reports: None Cardiovascular Surgical History: Reports: None Social & Family History - Family History Family Medical History: Noncontributory - Tobacco Use Smoking Status *Q: Current Every Day Smoker Years of Tobacco use: 5 Packs/Tins Daily: 0.5 - Caffeine Use Caffeine Use: Reports: Soda - Recreational Drug Use Recreational Drug Use: No ED ROS ENT - Review of Systems Review Of Systems: ROS reveals no pertinent complaints other than HPI. ED EXAM, ENT - Physical Exam Exam: See Below Exam Limited By: No Limitations General Appearance: Alert, No Apparent Distress Ears: Normal External Exam, Normal TMs Nose: Normal Inspection Mouth/Throat: Other (Several teeth that are rotted to the gum line, extensive gingivitis and periodontal disease) Head: Atraumatic, Normocephalic Neck: Normal Inspection Respiratory/Chest: No Respiratory Distress, Lungs Clear, Normal Breath Sounds Cardiovascular: Regular Rate, Rhythm, No Murmur Neurological: Alert, Oriented Psychiatric: Normal Affect, Normal Mood Skin: Warm, Dry, Intact, Normal Color, No Rash Course - Vital Signs Last Recorded V/S: Last Vital Signs Temp 36.8 C 06/29/19 20:50 Pulse 70 06/29/19 20:50 Resp 18 06/29/19 20:50 BP 123/83 06/29/19 20:50 Pulse Ox 98 06/29/19 20:50 - Orders/Labs/Meds Orders: Active Orders 24 hr Category Date Time Status Benzocaine [Hurricaine One 20%] Med 06/29/19 21:01 Once 2 each MUCMEM ONETIME ONE Ketorolac [Toradol] Med 06/29/19 21:01 Once 60 mg IM ONETIME ONE Lidocaine 2% [Xylocaine 2% Viscous] Med 06/29/19 21:01 Once 15 ml PO ONETIME ONE Departure - Departure Time of Disposition: 21:05 Disposition: Home, Self-Care 01 Condition: Good Clinical Impression: Dental caries - Discharge Information Referrals: PCP,None [Primary Care Provider] - Additional Instructions: The following information is given to patients seen in the emergency department who are being discharged to home. This information is to outline your options for follow-up care. We provide all patients seen in our emergency department with a follow-up referral. The need for follow-up, as well as the timing and circumstances, are variable depending upon the specifics of your emergency department visit. If you don't have a primary care physician on staff, we will provide you with a referral. We always advise you to contact your personal physician following an emergency department visit to inform them of the circumstance of the visit and for follow-up with them and/or the need for any referrals to a consulting specialist. The emergency department will also refer you to a specialist when appropriate. This referral assures that you have the opportunity for follow-up care with a specialist. All of these measure are taken in an effort to provide you with optimal care, which includes your follow-up. Under all circumstances we always encourage you to contact your private physician who remains a resource for coordinating your care. When calling for follow-up care, please make the office aware that this follow-up is from your recent emergency room visit. If for any reason you are refused follow-up, please contact the [facility] Emergency Department at and asked to speak to the emergency department charge nurse. 1. You must follow-up with a dentist for definitive management 2. Your antibiotics 3 times a day 3. Dental balls: Place 1 ball over affected tooth gently bite down for 10 minutes every 2 hours 4. Aleve 2 tabs in the morning and 2 tabs in the evening or ibuprofen 2-3 tabs 3 times daily as needed for pain - My Orders Last 24 Hours: My Active Orders 06/29/19 21:01 Benzocaine [Hurricaine One 20%] 2 each MUCMEM ONETIME ONE Ketorolac [Toradol] 60 mg IM ONETIME ONE Lidocaine 2% [Xylocaine 2% Viscous] 15 ml PO ONETIME ONE - Assessment/Plan Last 24 Hours: My Active Orders 06/29/19 21:01 Benzocaine [Hurricaine One 20%] 2 each MUCMEM ONETIME ONE Ketorolac [Toradol] 60 mg IM ONETIME ONE Lidocaine 2% [Xylocaine 2% Viscous] 15 ml PO ONETIME ONE
[2019-06-29 21:23] VITALS: BP 123/76; PULSE 87
== END 2019-06-29 21:34 | disposition home or self-care (01) ==
LOC: MW.ED 20:43
DX: K02.9 Dental caries, unspecified (principal); K05.6 Periodontal disease, unspecified; K05.10 Chronic gingivitis, plaque induced; F17.210 Nicotine dependence, cigarettes, uncomplicated
CPT/HCPCS: 96372; 99282; A9270; J1885; 99283

== ENCOUNTER 2019-09-01 10:01 | Emergency (ER) | payer OTHER ==
[2019-09-01] MEDS ORDERED: Tetracaine HCl/PF 0.5% 4 ML Bottle EYELF ONE (10:14)
--- NOTE | 2019-09-01 10:17 | EDM.PDOC ---
ED HPI GENERAL MEDICAL PROBLEM - General Chief Complaint: Eye Problems Stated Complaint: LEFT EYE REDNESS Time Seen by Provider: 09/01/19 10:10 Source of Information: Reports: Patient History Limitations: Reports: No Limitations - History of Present Illness INITIAL COMMENTS - FREE TEXT/NARRATIVE: HISTORY AND PHYSICAL: History of present illness: Patient is a 24-year-old male who presents to the emergency room with complaints of left eye irritation. 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 He states that he was done using the solvent and had taken his goggles off when a back draft had taken some of the solvent that was in the air and felt it go into his left eye. He typically wears glasses, not wearing any at this time. He denies any visual changes, discharge, headache or pain with ocular movement. Review of systems: As per history of present illness and below otherwise all systems reviewed and negative. Past medical history: As per history of present illness and as reviewed below otherwise noncontributory. Surgical history: As per history of present illness and as reviewed below otherwise noncontributory. Social history: See social history for further information Family history: As per history of present illness and as reviewed below otherwise noncontributory. Physical exam: General: Well-developed and well-nourished 24-year-old male. Alert and oriented. Nontoxic appearing and in no acute distress. HEENT: Atraumatic, normocephalic, pupils equal and reactive bilaterally, negative for conjunctival pallor or scleral icterus, scleral injection of the left eye, mucous membranes moist, TMs normal bilaterally, throat clear, neck supple, nontender, trachea midline. No drooling or trismus noted. No meningeal signs. No hot potato voice noted. Lungs: Clear to auscultation, breath sounds equal bilaterally, chest nontender. Heart: S1S2, regular rate and rhythm without overt murmur Abdomen: Soft, nondistended, nontender. Skin: Intact, warm, dry. No lesions or rashes noted. Extremities: Atraumatic, moves all extremities per self without difficulty or deficits, negative for cords or calf pain. Neurovascular unremarkable. Neuro: Awake, alert, oriented. Cranial nerves II through XII unremarkable. Cerebellum unremarkable. Motor and sensory unremarkable throughout. Exam nonfocal. Notes: Visual acuity was reviewed by me, patient states he is not wearing his glasses. PH 7.0. Fluorescein eye exam was done, he does appear to have a corneal abrasion at the 6:00 and 9 o'clock position. Patient does not tolerate the eye exam fairly well. Nursing staff irrigating the eye. Poison control was contacted, recommendations were obtained. Will give patient erythromycin ointment for the corneal abrasion. I encouraged him to follow-up with the memorial designer if he felt the discomfort was not improving. Supportive care measures were reviewed and discussed. Voices understanding and is agreeable to plan of care. Denies any further questions or concerns at this time. Diagnostics: Visual Acuity Therapeutics: Tetracaine, Erythromycin Ointment Prescription: Erythromycin Ointment Impression: Corneal Abrasion Plan: 1. Avoid wearing contacts while your eye is healing 2. Use the ointment as directed 3. Follow up with the Head Of Business Development as we discussed. Return to the ED as needed as discussed. Definitive disposition and diagnosis as appropriate pending reevaluation and review of above. Left Eye Pain Score (Numeric/FACES): 6 - Related Data Allergies Allergy/AdvReac Type Severity Reaction Status Date / Time No Known Allergies Allergy Verified 09/01/19 10:11 Home Meds: Home Meds Polymyxin B/Trimethoprim [PolyTrim Ophth Soln] 1 drop EYELF 5XDAY 5 Days #1 bottle 09/01/19 [Rx] Past Medical History - Past Health History Medical/Surgical History: Denies Medical/Surgical History HEENT History: Reports: None Cardiovascular History: Reports: None Respiratory History: Reports: None Gastrointestinal History: Reports: None Genitourinary History: Reports: None, Other (See Below) Other Genitourinary History: hx of spleen injury Musculoskeletal History: Reports: None Neurological History: Reports: None Psychiatric History: Reports: ADHD Endocrine/Metabolic History: Reports: None Hematologic History: Reports: None Immunologic History: Reports: None Oncologic (Cancer) History: Reports: None Dermatologic History: Reports: None - Infectious Disease History Infectious Disease History: Reports: None - Past Surgical History Head Surgeries/Procedures: Reports: None Cardiovascular Surgical History: Reports: None Social & Family History - Family History Family Medical History: Noncontributory - Caffeine Use Caffeine Use: Reports: Soda ED ROS GENERAL - Review of Systems Review Of Systems: ROS reveals no pertinent complaints other than HPI. ED EXAM GENERAL W FULL EYE - Physical Exam Exam: See Below (See dictation) Course - Vital Signs Last Recorded V/S: Last Vital Signs Temp 96.4 F 09/01/19 10:09 Pulse 74 09/01/19 11:10 Resp 18 09/01/19 11:10 BP 111/73 09/01/19 11:10 Pulse Ox 98 09/01/19 11:10 - Orders/Labs/Meds Meds: Medications Discontinued Medications Generic Name Dose Route Start Last Admin Trade Name Corina PRN Reason Stop Dose Admin Erythromycin 1 gm 09/01/19 10:47 09/01/19 11:13 Erythromycin 0.5% Ophth Oint EYEBOTH 09/01/19 10:48 1 gm ONETIME ONE Administration Tetracaine HCl 1 ml 09/01/19 10:14 09/01/19 10:36 Tetracaine 0.5% Steri-Unit Vanessa EYELF 09/01/19 10:15 1 drop ASDIRECTED ONE Administration Departure - Departure Time of Disposition: 10:46 Disposition: Home, Self-Care 01 Clinical Impression: Corneal abrasion Qualifiers: Encounter type: initial encounter Laterality: left Qualified Code(s): S05.02XA - Injury of conjunctiva and corneal abrasion without foreign body, left eye, initial encounter - Discharge Information Prescriptions: Polymyxin B/Trimethoprim [PolyTrim Ophth Soln] 1 drop EYELF 5XDAY 5 Days #1 bottle Instructions: Corneal Abrasion, [id number] Referrals: PCP,None [Primary Care Provider] - Forms: ED Department Discharge Additional Instructions: The following information is given to patients seen in the emergency department who are being discharged to home. This information is to outline your options for follow-up care. We provide all patients seen in our emergency department with a follow-up referral. The need for follow-up, as well as the timing and circumstances, are variable depending upon the specifics of your emergency department visit. If you don't have a primary care physician on staff, we will provide you with a referral. We always advise you to contact your personal physician following an emergency department visit to inform them of the circumstance of the visit and for follow-up with them and/or the need for any referrals to a consulting specialist. The emergency department will also refer you to a specialist when appropriate. This referral assures that you have the opportunity for follow-up care with a specialist. All of these measure are taken in an effort to provide you with optimal care, which includes your follow-up. Under all circumstances we always encourage you to contact your private physician who remains a resource for coordinating your care. When calling for follow-up care, please make the office aware that this follow-up is from your recent emergency room visit. If for any reason you are refused follow-up, please contact the [facility] Emergency Department at and asked to speak to the emergency department charge nurse. [facility] [address] [place] [id number] [address] 1. Avoid wearing contacts while your eye is healing 2. Use the ointment as directed (4 x daily for 5 days) 3. Follow up with the Head Of Business Development as we discussed. Return to the ED as needed as discussed.
[2019-09-01] MEDS ORDERED: Erythromycin Base 0.5% Ophth Oint 1 GM Tube EYEBOTH ONE (10:47)
[2019-09-01 11:20] VITALS: BP 111/73; PULSE 74
== END 2019-09-01 11:22 | disposition home or self-care (01) ==
LOC: MW.ED 10:01
DX: S05.02XA Injury of conjunctiva and corneal abrasion without foreign body, left eye, initial encounter (principal); X58.XXXA Exposure to other specified factors, initial encounter; Y93.89 Activity, other specified; Y99.0 Civilian activity done for income or pay
CPT/HCPCS: 99283; A9270

== ENCOUNTER 2019-09-13 20:34 | Emergency (ER) | payer SELFPAY ==
[2019-09-13] MEDS ORDERED: Alum Hydrox/Mag Hydrox/Simeth 15 ML, Metoclopramide 5 MG, Lidocaine 2% 5 ML PO ONE ×3 (20:50)
--- NOTE | 2019-09-13 20:53 | EDM.PDOC ---
<Zahraa Lea - Last Filed: 09/13/19 21:25> ED HPI GENERAL MEDICAL PROBLEM - General Chief Complaint: General Stated Complaint: VOMITING Time Seen by Provider: 09/13/19 20:35 Source of Information: Reports: Patient History Limitations: Reports: No Limitations - History of Present Illness INITIAL COMMENTS - FREE TEXT/NARRATIVE: HISTORY AND PHYSICAL: History of present illness: Patient is a 24-year-old male presents to the ED today with concern of occasional episodes of vomiting following taking concentrated hot pepper extract 2 days ago. Patient states his coworker was playing a prank on him and put the bottle of hot pepper extract in patients soup. Patient states he got a few bites into the soup but the hot pepper sauce made it too hot for him to eat. Patient states since then he's had some heartburn and occasional vomiting. Patient states he has been able to eat and drink but has occasional vomiting throughout the day. Patient states he had one episode of vomiting today and that was this morning and as not had any vomiting since. Patient denies any other symptoms or concerns. Patient states he does smoke cigarettes and marijuana daily. Patient denies fever, chills, chest pain, shortness of breath, or cough. Denies headache, neck stiff ness, change in vision, syncope, or near syncope. Denies abdominal pain, diarrhea, constipation, or dysuria. Has not noted any blood in urine or stool. Patient has been eating and drinking appropriately. Review of systems: As per history of present illness and below otherwise all systems reviewed and negative. Past medical history: As per history of present illness and as reviewed below otherwise noncontributory. Surgical history: As per history of present illness and as reviewed below otherwise noncontributory. Social history: See social history for further information Family history: As per history of present illness and as reviewed below otherwise noncontributory. Physical exam: General: Patient is alert, oriented, and in no acute distress. Patient sitting comfortably on exam table. HEENT: Atraumatic, normocephalic, pupils equal and reactive bilaterally, negative for conjunctival pallor or scleral icterus, mucous membranes moist, TMs normal bilaterally, throat clear, neck supple, nontender, trachea midline. No drooling or trismus noted. No meningeal signs. No hot potato voice noted. Lungs: Clear to auscultation, breath sounds equal bilaterally, chest nontender. Heart: S1S2, regular rate and rhythm without overt murmur Abdomen: Soft, nondistended, nontender. Negative for masses or hepatosplenomegaly. Negative for costovertebral tenderness. Pelvis: Stable nontender. Genitourinary: Deferred. Rectal: Deferred. Skin: Intact, warm, dry. No lesions or rashes noted. Extremities: Atraumatic, negative for cords or calf pain. Neurovascular unremarkable. Neuro: Awake, alert, oriented. Cranial nerves II through XII unremarkable. Cerebellum unremarkable. Motor and sensory unremarkable throughout. Exam nonfocal. Notes: Discussed the importance for follow-up with primary care provider. Voices understanding and is agreeable to plan of care. Denies any further questions or concerns at this time. Diagnostics: CBC, CMP, UA, Lipase Therapeutics: GI cocktail Prescription: Zofran, Protonix Impression: Gastritis Plan: 1. Take medication as prescribed. Take Tylenol as directed for pain and discomfort. 2. Follow-up with a primary care provider as discussed. Return to the ED as needed and as discussed. Definitive disposition and diagnosis as appropriate pending reevaluation and review of above. - Related Data Allergies Allergy/AdvReac Type Severity Reaction Status Date / Time No Known Allergies Allergy Verified 09/13/19 20:43 Home Meds: Home Meds . [No Known Home Meds] 09/13/19 [History] Past Medical History - Past Health History Medical/Surgical History: Denies Medical/Surgical History HEENT History: Reports: None Cardiovascular History: Reports: None Respiratory History: Reports: None Gastrointestinal History: Reports: None Genitourinary History: Reports: None, Other (See Below) Other Genitourinary History: hx of spleen injury Musculoskeletal History: Reports: None Neurological History: Reports: None Psychiatric History: Reports: ADHD Endocrine/Metabolic History: Reports: None Hematologic History: Reports: None Immunologic History: Reports: None Oncologic (Cancer) History: Reports: None Dermatologic History: Reports: None - Infectious Disease History Infectious Disease History: Reports: Chicken Pox - Past Surgical History Head Surgeries/Procedures: Reports: None Cardiovascular Surgical History: Reports: None Social & Family History - Family History Family Medical History: Noncontributory - Tobacco Use Smoking Status *Q: Current Every Day Smoker Years of Tobacco use: 10 Packs/Tins Daily: 1 - Caffeine Use Caffeine Use: Reports: Coffee, Energy Drinks, Soda - Recreational Drug Use Recreational Drug Use: Yes Recreational Drug Type: Reports: Marijuana/Hashish Recreational Drug Use Frequency: Daily ED ROS GENERAL - Review of Systems Review Of Systems: ROS reveals no pertinent complaints other than HPI. ED EXAM, GENERAL - Physical Exam Exam: See Below (See dictation) Course - Vital Signs Last Recorded V/S: Last Vital Signs Temp 35.9 C 09/13/19 20:44 Pulse 64 09/13/19 22:05 Resp 18 09/13/19 22:05 BP 115/57 L 09/13/19 22:05 Pulse Ox 100 09/13/19 22:05 - Orders/Labs/Meds Labs: Laboratory Tests 09/13/19 09/13/19 09/13/19 Range/Units 21:06 21:06 21:15 WBC 7.54 (4.0-11.0) K/uL RBC 4.72 (4.50-5.90) M/uL Hgb 14.9 (13.0-17.0) g/dL Hct 42.1 (38.0-50.0) % MCV 89.2 (80.0-98.0) fL MCH 31.6 (27.0-32.0) pg MCHC 35.4 (31.0-37.0) g/dL RDW Std Deviation 41.6 (28.0-62.0) fl RDW Coeff of Hannah 13 (11.0-15.0) % Plt Count 200 (150-400) K/uL MPV 9.30 (7.40-12.00) fL Neut % (Auto) 54.8 (48.0-80.0) % Lymph % (Auto) 36.1 (16.0-40.0) % [place] % (Auto) 5.7 (0.0-15.0) % Eos % (Auto) 3.1 (0.0-7.0) % Baso % (Auto) 0.3 (0.0-1.5) % Neut # (Auto) 4.1 (1.4-5.7) K/uL Lymph # (Auto) 2.7 H (0.6-2.4) K/uL [place] # (Auto) 0.4 (0.0-0.8) K/uL Eos # (Auto) 0.2 (0.0-0.7) K/uL Baso # (Auto) 0.0 (0.0-0.1) K/uL Nucleated RBC % 0.0 /100WBC Nucleated RBCs # 0 K/uL Sodium 144 (136-148) mmol/L Potassium 3.7 (3.5-5.1) mmol/L Chloride 108 H (98-107) mmol/L Carbon Dioxide 25.9 (21.0-32.0) mmol/L BUN 12 (7.0-18.0) mg/dL Creatinine 0.7 L (0.8-1.3) mg/dL Est Cr Clr Drug Dosing 123.12 mL/min Estimated GFR (MDRD) > 60.0 ml/min Glucose 93 (74-106) mg/dL Calcium 8.5 (8.5-10.1) mg/dL Total Bilirubin 0.6 (0.2-1.0) mg/dL AST 35 (15-37) IU/L ALT 23 (14-63) IU/L Alkaline Phosphatase 65 (46-116) U/L Total Protein 7.8 (6.4-8.2) g/dL Albumin 4.2 (3.4-5.0) g/dL Globulin 3.6 (2.6-4.0) g/dL Albumin/Globulin Ratio 1.2 (0.9-1.6) Lipase 111 (73-393) U/L Urine Color YELLOW Urine Appearance CLEAR Urine pH 6.5 (5.0-8.0) Ur Specific [place] 1.025 (1.001-1.035) Urine Protein NEGATIVE (NEGATIVE) mg/dL Urine Glucose (UA) NEGATIVE (NEGATIVE) mg/dL Urine Ketones NEGATIVE (NEGATIVE) mg/dL Urine Occult Blood NEGATIVE (NEGATIVE) Urine Nitrite NEGATIVE (NEGATIVE) Urine Bilirubin NEGATIVE (NEGATIVE) Urine Urobilinogen 2.0 H (<2.0) EU/dL Ur Leukocyte Esterase NEGATIVE (NEGATIVE) Meds: Medications Discontinued Medications Generic Name Dose Route Start Last Admin Trade Name Freq PRN Reason Stop Dose Admin Al Hydroxide/Mg Hydroxide 15 0 ml 09/13/19 20:50 09/13/19 21:00 ml/ Metoclopramide HCl 5 mg/ PO 09/13/19 20:51 1 each Lidocaine HCl 5 ml ONETIME ONE Administration Departure - Departure Disposition: Home, Self-Care 01 Clinical Impression: Gastritis Qualifiers: Gastritis type: unspecified gastritis Chronicity: acute Gastritis bleeding: without bleeding Qualified Code(s): K29.00 - Acute gastritis without bleeding - Discharge Information Instructions: Gastritis, Adult, [id number] Referrals: PCP,None [Primary Care Provider] - Forms: ED Department Discharge Additional Instructions: The following information is given to patients seen in the emergency department who are being discharged to home. This information is to outline your options for follow-up care. We provide all patients seen in our emergency department with a follow-up referral. The need for follow-up, as well as the timing and circumstances, are variable depending upon the specifics of your emergency department visit. If you don't have a primary care physician on staff, we will provide you with a referral. We always advise you to contact your personal physician following an emergency department visit to inform them of the circumstance of the visit and for follow-up with them and/or the need for any referrals to a consulting specialist. The emergency department will also refer you to a specialist when appropriate. This referral assures that you have the opportunity for follow-up care with a specialist. All of these measure are taken in an effort to provide you with optimal care, which includes your follow-up. Under all circumstances we always encourage you to contact your private physician who remains a resource for coordinating your care. When calling for follow-up care, please make the office aware that this follow-up is from your recent emergency room visit. If for any reason you are refused follow-up, please contact the [facility] Emergency Department at and asked to speak to the emergency department charge nurse. [facility] [address] [place] [phone] [address] 1. Take medication as prescribed. Take Tylenol as directed for pain and discomfort. 2. Follow-up with a primary care provider as discussed. Return to the ED as needed and as discussed. <Dhiraj Edmond - Last Filed: 09/13/19 22:08> Departure - Departure Time of Disposition: 22:08
[2019-09-13 21:59] LABS: BLOOD UREA NITROGEN,BUN 12 mg/dL (7.0-18.0); CARBON DIOXIDE,CO2 25.9 mmol/L (21.0-32.0); CHLORIDE,CL 108 mmol/L (98-107); GLUCOSE RANDOM 93 mg/dL (74-106); LIPASE 111 U/L (73-393); POTASSIUM,K 3.7 mmol/L (3.5-5.1); SODIUM,NA 144 mmol/L (136-148)
[2019-09-13 22:06] VITALS: BP 115/57; PULSE 64
== END 2019-09-13 22:16 | disposition home or self-care (01) ==
LOC: MW.ED 20:34
DX: K29.00 Acute gastritis without bleeding (principal); F17.210 Nicotine dependence, cigarettes, uncomplicated
CPT/HCPCS: 36415; 80053; 81003; 83690; 85025; 99284; A9270; 99283

== ENCOUNTER 2020-01-02 23:49 | Emergency (ER) | payer SELFPAY ==
[2020-01-02 23:58] VITALS: BP 144/121; PULSE 92
[2020-01-03] MEDS ORDERED: oxyCODONE 5 MG Tab PO ONE (00:02)
[2020-01-03] MEDS ORDERED: Amoxicillin 500 MG Cap PO ONE (00:02)
--- NOTE | 2020-01-03 00:09 | EDM.PDOC ---
ED [facility] GENERAL MEDICAL PROBLEM - General Chief Complaint: ENT Problem Stated Complaint: TOOTHACHE Time Seen by Provider: 01/03/20 00:08 - History of Present Illness INITIAL COMMENTS - FREE TEXT/NARRATIVE: HPI 24-year-old male with globally poor dentition presents for evaluation of left mandibular molar pain of one day duration. No fevers, chills, difficulty swallowing, headache, changes in vision or hearing. M/S/F/SocHx notable for: please see HPI; remainder reviewed with patient and in chart. ROS: Negative constitutional, eye, cardiovascular, pulmonary, GI, , MSK, skin , neurologic, psychiatric, endocrine unless noted in the HPI. Exam HR 92, RR 18, BP 144 121, T 36.9C, SaO2 97% on room air. Gen: pleasant, nontoxic-appearing, appears to be in moderate discomfort. HEENT: NC, AT, PEERL, EOMI. Mouth: globally poor dentition, floor of the mouth soft without swelling or tongue elevation, no peritonsilar swelling bilaterally, uvula midline, moist mucus membranes without lesions, tongue without plaques or lesions,gumline without significant ulcerations, no bleeding, no marked halitosis. Neck: Supple with a full range of motion, no swelling, no cervical lymphdenopathy, no difficulty swallowing. Resp: unlabored respirations with a normal work of breathing Card: extremities warm and well perfused. GI: non-distended MSK: No visible deformities, strength and tone without visually appreciable deficit. Skin: Normal color with no visible lesions. Neuro: alert and oriented 3, no facial asymmetry, vision and hearing WNL. Psych: unusual mood and affect. MDM Previous chart, nursing note, and vitals reviewed. A: 24-year-old male with globally poor dentition presents for evaluation of left mandibular molar pain of one day duration. DDX: caries, pulpitis, gingivitis, periodontitis, periapical abscess, jaw osteomyelitis, Ludgwig's angina, acute necrotizing gingivitis. ED Course: Reassuringly, the patients exam is without findings consistent with Ludwigs angina, nor were there evidence of clinically significant abscesses. The gumline was without gross abnormalities. Suspect the patients dental pain is secondary to the poor dentition, caries, and a likely periapical abscess. Patient prescribed a limited RX of [place], instructed to use ibuprofen for baseline pain control, was prescribed 10 days of Amoxicillin 500 mg q8h and was provided with a list of low cost area dental services. First dose of amoxicillin given the ED, 10 mg oxycodone given in ED. Patient instructed to contact dentists at 8 AM today. Impression: Dental Pain dental Pain Score (Numeric/FACES): 10 - Related Data Allergies Allergy/AdvReac Type Severity Reaction Status Date / Time No Known Allergies Allergy Verified 01/02/20 23:58 Home Meds: Home Meds Amoxicillin 500 mg PO TID #29 tab 01/03/20 [Rx] Hydrocodone/Acetaminophen [[place] 5-325 Tablet] 1 - 2 each PO Q6H PRN #8 tablet 01/03/20 [Rx] Past Medical History - Past Health History Medical/Surgical History: Denies Medical/Surgical History HEENT History: Reports: None Cardiovascular History: Reports: None Respiratory History: Reports: None Gastrointestinal History: Reports: None Genitourinary History: Reports: Other (See Below) Other Genitourinary History: hx of spleen injury Musculoskeletal History: Reports: None Neurological History: Reports: None Psychiatric History: Reports: ADHD Endocrine/Metabolic History: Reports: None Hematologic History: Reports: None Immunologic History: Reports: None Oncologic (Cancer) History: Reports: None Dermatologic History: Reports: None - Infectious Disease History Infectious Disease History: Reports: Chicken Pox - Past Surgical History Head Surgeries/Procedures: Reports: None Cardiovascular Surgical History: Reports: None Male Surgical History: Reports: None Social & Family History - Family History Family Medical History: Noncontributory - Tobacco Use Smoking Status *Q: Current Every Day Smoker Years of Tobacco use: 13 Packs/Tins Daily: 1.5 - Caffeine Use Caffeine Use: Reports: Coffee - Recreational Drug Use Recreational Drug Use: No ED ROS GENERAL - Review of Systems Review Of Systems: See Below ED EXAM, GENERAL - Physical Exam Exam: See Below Course - Vital Signs Last Recorded V/S: Last Vital Signs Temp 36.9 C 01/02/20 23:56 Pulse 92 01/02/20 23:56 Resp 18 01/02/20 23:56 BP 144/121 H 01/02/20 23:56 Pulse Ox 97 01/02/20 23:56 - Orders/Labs/Meds Meds: Medications Discontinued Medications Generic Name Dose Route Start Last Admin Trade Name Freq PRN Reason Stop Dose Admin Amoxicillin 500 mg 01/03/20 00:02 Amoxil PO 01/03/20 00:03 ONETIME ONE Oxycodone HCl 10 mg 01/03/20 00:02 Oxycodone PO 01/03/20 00:03 ONETIME ONE Departure - Departure Time of Disposition: 00:06 Disposition: Home, Self-Care 01 Clinical Impression: Pain, dental - Discharge Information Prescriptions: Amoxicillin 500 mg PO TID #29 tab Hydrocodone/Acetaminophen [[place] 5-325 Tablet] 1 - 2 each PO Q6H PRN #8 tablet PRN Reason: Pain Referrals: PCP,None [Primary Care Provider] - Additional Instructions: You were in seen in the [facility] Emergency Department for evaluation of dental pain. Please read and follow all of the instructions below. Please use ibuprofen and [place] for treatment of pain. Do not use more than instructed to use - this will not reduce your pain and it will increase the risk of ulcers, liver failure, kidney injury, and other serious side effects. Unfortunately, stronger pain medications such as narcotics could not be prescribed today as it is not appropriate to use these medications to indefinitely mask untreated serious medical conditions - THE MOST APPROPRIATE TREATMENT FOR YOUR CONDITION IS PROMPT DENTAL CARE. YOUR DENTAL PAIN WILL NOT GET BETTER UNTIL YOU ARE TREATED BY A DENTIST. If left untreated your infection can worsen and may become life threatening. Please return to the emergency department if you develop any of the following: fevers, chills, neck stiffness, difficulty swallowing, difficulty breathing, headaches, changes in vision or hearing, or if you are otherwise concerned about your health. PLEASE FOLLOW UP WITHIN 24 HOURS WITH A DENTIST. If you have any new symptoms or if you are at all concerned about your health please return immediately to the emergency department. When calling for follow-up care, please make the office aware that this follow- up is from your recent emergency room visit. If for any reason you are refused follow-up, please contact the [facility] Emergency Department at and asked to speak to the emergency department charge nurse. Your care today was limited to identifying and treating emergent medical problems only. Many people have subtle differences in their test results that require follow up with their outpatient physician(s) to correctly determine if this represents a normal variation or concerning abnormality with respect to your specific health. The care given to you today was limited to identifying and treating emergent medical problems - you need to request a copy of all of your medical records from today's visit and follow up with your outpatient physician(s) to review both today's visit and your overall health. If you have any new symptoms or if you are at all concerned about your health please return immediately to the emergency department. Prescriptions: If you are uninsured or have financial difficulties with filling your prescription(s), you may consider using a free pharmacy discount service such as [employer]uffle (LeadSift) or [employer]ker (M[employer]ill[employer]). These services allow you to search for a medication on your phone (or computer) and obtain a coupon that usually has a significant discount from the list reid at a pharmacy. Your physician as well as [facility] does not have a financial relationship with either of these services. You may also wish to speak with your physician to determine if lower cost prescriptions are possible. Obtaining primary care: 1. [facility] provides pediatrics (children), family medicine (children, adults, and some obstetrical care), and internal medicine (adults). Further specialty care is also available. Same day appointments are available. They may be contacted at [phone] and are open Friday through Friday 8 AM to [address] [facility] are located at [facility], [address] [place] [address] 58. 2. [facility] offers family medicine, internal medicine, [facility], and further specialty care. [facility] may be contacted at [phone]. [facility] is located at [address] [place] [address]. 3. If you have health insurance, please also contact your insurer for a list of accepting providers under your policy, you may contact these providers for further health care. Occupational health: Work related injuries may consider following up with [facility], . Occupational health services are located at [address] [place] [address] and are open Friday through Friday from 7: 30 am to 5:00 pm. Obstetrical and Gynecological Care: [facility], , Friday through Friday 8 AM to 5 PM. [address] [place] [address]. Eyecare: If you have an eye injury you should follow up with your real estate legal secretary or with [facility], at [phone] or [phone] , they are located at [address] [place] [address]. Dental Care Elie Sears DDS. [address] [place], [place]. Ph. [phone] Omid Sears DDS MS. [address] [facility] [address], [place], [place]. Ph. Jeffrey Brooks DDS. 10 11/[address] [place] [address]. Ph. [phone] Byron Owens DDS. [address] [facility] [address] [place], [place]. Ph. [phone] Francesco Eric DDS PC. [address] [facility] [address] [place], [place]. Ph. Venkat Domingo DDS. [address] [facility] [address] [facility] [place]. Ph. [phone] [facility]. [address] [place], [place]. Ph. [phone] [facility]. [address] [place] [address], [place], [place]. Ph. [phone] [facility] [address] [place] [address]. Ph. [phone] [facility]. [address] [place] [address] [address] [place], [place]. Ph. [facility]. [address] [place], [place]. Ph. [phone] Amoxicillin (Brand Names: Amoxil) Please take this medication as prescribed. Please take the medication for the full duration of the prescription. If you feel you are experiencing a side effect, please call your physician or the emergency department. This is a penicillin type medicine used to treat a wide variety of bacterial infections. Amoxicillin Side Effects: Nausea, vomiting, or diarrhea may occur. If any of these effects persist or worsen, tell your doctor or pharmacist promptly. This medicine may cause temporary staining of the teeth. Proper brushing will usually remove any stains and prevent them from occurring. Use of this medication for prolonged or repeated periods may result in oral thrush or a new vaginal yeast infection (oral or vaginal fungal infection). Contact your doctor if you notice white patches in your mouth, a change in vaginal discharge or other new symptoms. Tell your doctor right away if any of these rare but serious side effects occur: dark urine, persistent nausea or vomiting, stomach/abdominal pain, yellowing eyes or skin, easy bruising or bleeding, persistent sore throat or fever. This medication may rarely cause a severe intestinal condition (Clostridium difficile-associated diarrhea) due to a type of resistant bacteria. This condition may occur during treatment or weeks to months after treatment has stopped. Do not use anti-diarrhea products or narcotic pain medications if you have the following symptoms because these products may make them worse. Tell your doctor right away if you develop: persistent diarrhea, abdominal or stomach pain/cramping, blood/mucus in your stool. A very serious allergic reaction to this drug is rare. However, get medical help right away if you notice any symptoms of a serious allergic reaction, including: rash, itching/swelling (especially of the face/tongue/throat), severe dizziness, trouble breathing. Amoxicillin can commonly cause a mild rash that is usually not serious. However, you may not be able to tell it apart from a rare rash that could be a sign of a severe allergic reaction. Therefore, get medical help right away if you develop any rash. Amoxicillin Precautions: Before taking amoxicillin, tell your doctor or pharmacist if you are allergic to it; or to penicillin or cephalosporin antibiotics; or if you have any other allergies. This product may contain inactive ingredients, which can cause allergic reactions or other problems. Talk to your pharmacist for more details. Before using this medication, tell your doctor or pharmacist your medical history, especially of: kidney disease, a certain type of viral infection ( infectious mononucleosis). Amoxicillin suspension may contain sugar. Caution is advised if you have diabetes or any other condition that requires you to limit/avoid sugar in your diet. Ask your doctor or pharmacist about using this product safely. Before having surgery, tell your doctor or dentist about all the products you use (including prescription drugs, nonprescription drugs, and herbal products). Amoxicillin Drug Interactions: The effects of some drugs can change if you take other drugs or herbal products at the same time. This can increase your risk for serious side effects or may cause your medications not to work correctly. These drug interactions are possible, but do not always occur. Your doctor or pharmacist can often prevent or manage interactions by changing how you use your medications or by close monitoring. To help your doctor and pharmacist give you the best care, be sure to tell your doctor and pharmacist about all the products you use (including prescription drugs, nonprescription drugs, and herbal products) before starting treatment with this product. While using this product, do not start, stop, or change the dosage of any other medicines you are using without your doctor's approval. Some products that may interact with this drug include: live bacterial vaccines, methotrexate. This document does not contain all possible drug interactions. Keep a list of all the products you use. Share this list with your doctor and pharmacist to lessen your risk for serious medication problems. Sepsis Event Note - Evaluation Sepsis Screening Result: No Definite Risk - Focused Exam Vital Signs: Vital Signs Temp Pulse Resp BP Pulse Ox 01/02/20 23:56 36.9 C 92 18 144/121 H 97 Date Exam was Performed: 01/03/20 Time Exam was Performed: 00:06
== END 2020-01-03 00:24 | disposition home or self-care (01) ==
LOC: MW.ED 23:49
DX: K08.89 Other specified disorders of teeth and supporting structures (principal); F17.210 Nicotine dependence, cigarettes, uncomplicated
CPT/HCPCS: 99282; A9270; 99283

== ENCOUNTER 2020-02-07 08:46 | Emergency (ER) | payer SELFPAY ==
--- NOTE | 2020-02-07 09:56 | EDM.PDOC ---
ED HPI GENERAL MEDICAL PROBLEM - General Chief Complaint: General Stated Complaint: INJURED RIB Time Seen by Provider: 02/07/20 09:54 Source of Information: Reports: Patient History Limitations: Reports: No Limitations - History of Present Illness INITIAL COMMENTS - FREE TEXT/NARRATIVE: Fell at work one week ago. Complains of left rib cage pain since. He states that his left chest wall hurts when he moves but when he does not move he has no problems. Onset: Gradual (one week) Location: Reports: Chest Severity: Mild (to moderate) Worsens with: Reports: Breathing (deep breathing), Movement chest Pain Score (Numeric/FACES): 9 - Related Data Allergies Allergy/AdvReac Type Severity Reaction Status Date / Time No Known Allergies Allergy Verified 02/07/20 09:14 Home Meds: Home Meds Hydrocodone/Acetaminophen [[place] 5-325 Tablet] 1 - 2 each PO Q6H PRN #8 tablet 01/03/20 [Rx] Ibuprofen [Motrin] 800 mg PO TID PRN 21 Days tablet 02/07/20 [Rx] Past Medical History - Past Health History Medical/Surgical History: Denies Medical/Surgical History HEENT History: Reports: None Cardiovascular History: Reports: None Respiratory History: Reports: None Gastrointestinal History: Reports: None Genitourinary History: Reports: Other (See Below) Other Genitourinary History: hx of spleen injury Musculoskeletal History: Reports: None Neurological History: Reports: None Psychiatric History: Reports: ADHD Endocrine/Metabolic History: Reports: None Hematologic History: Reports: None Immunologic History: Reports: None Oncologic (Cancer) History: Reports: None Dermatologic History: Reports: None - Infectious Disease History Infectious Disease History: Reports: Chicken Pox - Past Surgical History Head Surgeries/Procedures: Reports: None Cardiovascular Surgical History: Reports: None Male Surgical History: Reports: None Social & Family History - Family History Family Medical History: Noncontributory - Tobacco Use Smoking Status *Q: Current Every Day Smoker Years of Tobacco use: 14 Packs/Tins Daily: 1 - Caffeine Use Caffeine Use: Reports: Coffee - Recreational Drug Use Recreational Drug Use: Yes Recreational Drug Type: Reports: Marijuana/Hashish Recreational Drug Use Frequency: Daily ED ROS GENERAL - Review of Systems Review Of Systems: See Below Constitutional: Reports: No Symptoms HEENT: Reports: No Symptoms Respiratory: Reports: Other (chest pain on the left with movement) Endocrine: Reports: No Symptoms GI/Abdominal: Reports: No Symptoms : Reports: No Symptoms Musculoskeletal: Reports: Other (chest wall pain on the left) Skin: Reports: No Symptoms Neurological: Reports: No Symptoms ED EXAM, GENERAL - Physical Exam Exam: See Below Exam Limited By: No Limitations General Appearance: Alert, WD/WN, No Apparent Distress Ears: Normal External Exam, Normal Canal, Hearing Grossly Normal, Normal TMs Nose: Normal Inspection, Normal Mucosa, No Blood Throat/Mouth: Normal Inspection, Normal Lips, Normal Teeth, Normal Gums, Normal Oropharynx, Normal Voice, No Airway Compromise Head: Atraumatic, Normocephalic Neck: Normal Inspection, Supple, Non-Tender, Full Range of Motion Respiratory/Chest: No Respiratory Distress, Lungs Clear, Normal Breath Sounds, No Accessory Muscle Use, Other (tenderness over left lateral chest wall over the 8-11th ribs.). No: Crackles Cardiovascular: Normal Peripheral Pulses, Regular Rate, Rhythm, No Edema, No Gallop, No JVD, No Murmur, No Rub GI/Abdominal: Normal Bowel Sounds, Soft, Non-Tender, No Organomegaly, No Distention, No Abnormal Bruit, No Mass (Male) Exam: Deferred Rectal (Males) Exam: Deferred Back Exam: Normal Inspection, Full Range of Motion Extremities: Normal Inspection, Normal Range of Motion, Non-Tender, Normal Capillary Refill, No Pedal Edema Lymphatic: No Adenopathy Course - Vital Signs Text/Narrative:: X-rays of the ribs are normal. He will be discharged. He agrees with the discharge plan. Last Recorded V/S: Last Vital Signs Temp 97.7 F 02/07/20 09:10 Pulse 74 02/07/20 09:10 Resp 16 02/07/20 09:10 BP 130/52 L 02/07/20 09:10 Pulse Ox 98 02/07/20 09:10 Departure - Departure Time of Disposition: 10:56 Disposition: Home, Self-Care 01 Condition: Good Clinical Impression: Contusion of rib on left side Qualifiers: Encounter type: initial encounter Qualified Code(s): S20.212A - Contusion of left front wall of thorax, initial encounter - Discharge Information *PRESCRIPTION DRUG MONITORING PROGRAM REVIEWED*: Yes *COPY OF PRESCRIPTION DRUG MONITORING REPORT IN PATIENT ALESSANDRO: Yes Instructions: Chest Contusion, Adult, [id number] Referrals: PCP,None [Primary Care Provider] - Forms: ED Department Discharge Additional Instructions: Take all medications as directed. Follow up with your PCP in the next two to four days. Warm compresses to the left chest wall for the next 3 days (30 minutes on and one hour off while awake). Rest for the next 24 hours. Return to the ED if your condition gets worse or should you have any questions or concerns. The following information is given to patients seen in the emergency department who are being discharged to home. This information is to outline your options for follow-up care. We provide all patients seen in our emergency department with a follow-up referral. The need for follow-up, as well as the timing and circumstances, are variable depending upon the specifics of your emergency department visit. If you don't have a primary care physician on staff, we will provide you with a referral. We always advise you to contact your personal physician following an emergency department visit to inform them of the circumstance of the visit and for follow-up with them and/or the need for any referrals to a consulting specialist. The emergency department will also refer you to a specialist when appropriate. This referral assures that you have the opportunity for follow-up care with a specialist. All of these measure are taken in an effort to provide you with optimal care, which includes your follow-up. Under all circumstances we always encourage you to contact your private physician who remains a resource for coordinating your care. When calling for follow-up care, please make the office aware that this follow-up is from your recent emergency room visit. If for any reason you are refused follow-up, please contact the [facility] Emergency Department at and asked to speak to the emergency department charge nurse. Sepsis Event Note - Evaluation Sepsis Screening Result: No Definite Risk - Focused Exam Vital Signs: Vital Signs Temp Pulse Resp BP Pulse Ox 02/07/20 09:10 97.7 F 74 16 130/52 L 98 Date Exam was Performed: 02/07/20 Time Exam was Performed: 10:50
--- NOTE | 2020-02-07 10:05 | CR ---
Chest and left ribs: Frontal view of the chest was obtained as well as 2 views of the left ribs. Comparison: No previous chest imaging. Heart size and mediastinum are within normal limits. Lungs are clear with no acute parenchymal change. No pneumothorax is identified. No discrete fracture or other left sided rib abnormality is appreciated. Impression: 1. Nothing acute is appreciated on PA chest x-ray. 2. No discrete left-sided rib abnormality is appreciated. Diagnostic code #1 This report was dictated in [place] Standard Time
[2020-02-07] MEDS ORDERED: Ibuprofen 800 MG Tab PO ONE (10:51)
[2020-02-07 11:09] VITALS: BP 114/74; PULSE 60
== END 2020-02-07 11:09 | disposition home or self-care (01) ==
LOC: MW.ED 08:46
DX: S20.212A Contusion of left front wall of thorax, initial encounter (principal); F17.210 Nicotine dependence, cigarettes, uncomplicated; W19.XXXA Unspecified fall, initial encounter; Y99.0 Civilian activity done for income or pay
CPT/HCPCS: 71101; 99283; A9270

== ENCOUNTER 2020-07-05 08:25 | Emergency (ER) | payer SELFPAY ==
[2020-07-05] MEDS ORDERED: Ketorolac 30 MG/ML SDV IM ONE (08:39)
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
--- NOTE | 2020-07-05 09:31 | CR ---
Right forearm: 2 views of the right forearm were obtained. Comparison: No prior forearm study. No discrete fracture or other bony abnormality is appreciated. Impression: 1. No abnormality is appreciated on 2 view right forearm study. Diagnostic code #1 This report was dictated in MDT
--- NOTE | 2020-07-05 09:32 | CR ---
Right wrist: 3 views of the right wrist are obtained. Comparison: No previous study. Fracture is identified within the mid navicular bone. Alignment remains anatomic. No additional fracture or other bony abnormality is seen. Impression: 1. Mid navicular fracture. 2. Right wrist study is otherwise unremarkable. Diagnostic code #3 This report was dictated in MDT
--- NOTE | 2020-07-05 09:35 | CR ---
Right hand: 3 views of the right hand were obtained. Comparison: Prior right hand study of 01/23/18. Mid navicular bone fracture is again seen. Joint spaces are preserved. No additional fracture or other bony abnormality is appreciated. Impression: 1. Nondisplaced navicular fracture is again identified. 2. No additional abnormality is appreciated on right hand exam. Diagnostic code #3 This report was dictated in MDT
[2020-07-05 10:16] VITALS: BP 146/66; PULSE 72
== END 2020-07-05 10:00 | disposition home or self-care (01) ==
LOC: MW.ED 08:25 → MW.OB 08:37 → MW.ED 08:37
DX: S62.001A Unspecified fracture of navicular [scaphoid] bone of right wrist, initial encounter for closed fracture (principal); W09.8XXA Fall on or from other playground equipment, initial encounter
CPT/HCPCS: 29125; 73090; 73110; 73130; 96372; 99283; J1885

== ENCOUNTER 2020-07-19 15:49 | Emergency (ER) | payer SELFPAY | END 2020-07-19 18:30 | LOC: MW.ED 15:49 | DX: Z53.21 Procedure and treatment not carried out due to patient leaving prior to being seen by health care provider (principal) ==

== ENCOUNTER 2020-08-18 20:02 | Emergency (ER) | payer SELFPAY ==
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
--- NOTE | 2020-08-18 20:39 | CR ---
Right wrist Comparison: Prior right wrist study of 07/05/20. Cyst is identified within the navicular bone. This is an interval change from prior study and occurs around previous fracture line. This may represent localized area of avascular necrosis. No additional abnormality is seen within the right wrist. Mild soft tissue swelling appears to be present. Impression: 1. Cyst within the navicular bone as an interval change from prior study possibly due to localized area of avascular necrosis. 2. Mild soft tissue swelling. 3. No additional abnormality is appreciated. Diagnostic code #3 This report was dictated in MDT
[2020-08-18] MEDS ORDERED: Acetaminophen/HYDROcodone 325-5 MG Tab PO ONE (20:55)
[2020-08-19 02:20] VITALS: BP 120/71; PULSE 77
== END 2020-08-18 21:30 | disposition home or self-care (01) ==
LOC: MW.ED 20:02
DX: S62.001A Unspecified fracture of navicular [scaphoid] bone of right wrist, initial encounter for closed fracture (principal); V19.9XXA Pedal cyclist (driver) (passenger) injured in unspecified traffic accident, initial encounter
CPT/HCPCS: 29125; 73110; 99283; A9270

== ENCOUNTER 2021-10-01 15:56 | Emergency (ER) | payer SELFPAY ==
[2021-10-01 17:52] VITALS: BP 126/78; PULSE 67
== END 2021-10-01 17:50 | disposition left against medical advice (07) ==
LOC: MW.ED 15:56
DX: Z53.21 Procedure and treatment not carried out due to patient leaving prior to being seen by health care provider (principal)

== ENCOUNTER 2023-02-02 04:14 | Emergency (ER) | payer OTHER ==
[2023-02-02 04:43] VITALS: BP 134/78; PULSE 84
== END 2023-02-02 04:55 ==
LOC: MW.ED 04:14
DX: Z04.1 Encounter for examination and observation following transport accident (principal)
CPT/HCPCS: 99282; 99283